=== PATIENT | male | born 1985 | race Caucasian/White ===

== ENCOUNTER 2024-05-18 02:41 | Inpatient (IN) | payer OTHER ==
[~2024-05-18] VITALS: Ht 177.8 cm; Wt 84.0 kg
[2024-05-18] MEDS: HALOPERIDOL LACTATE 5 MG/ML VIAL IM ONE (03:11)
[2024-05-18] MEDS: LORazepam 2 MG/ML VIAL IM ONE (03:11)
[2024-05-18] MEDS: DiphenhydrAMINE HCL 50 MG/ML VIAL IM ONE (03:11)
[2024-05-18] MEDS ORDERED: BUSP15 PO (03:17)
[2024-05-18] MEDS ORDERED: ESCI20TA37 PO (03:17)
[2024-05-18] MEDS ORDERED: EMTR1TAB23 PO (03:17)
[2024-05-18] MEDS ORDERED: PRAZ1 PO (03:17)
[2024-05-18] MEDS ORDERED: LACT10SO9 PO (03:17)
[2024-05-18] MEDS ORDERED: HALOPERIDOL 5 MG TABLET PO PRN (03:30)
[2024-05-18 04:24] LABS: COVID AG,FIA SOURCE NASAL SWAB
[2024-05-18 04:25] LABS: BASOPHILS % (AUTO) 0.6 % (0.0-2.0); EOSINOPHILS % (AUTO) 0.9 % (1.0-6.0); HEMATOCRIT 46.3 % (41-53); HEMOGLOBIN 15.5 g/dL (13.5-17.5); LYMPHOCYTES # (AUTO) 1.7 K/uL (1.0-4.8); LYMPHOCYTES % (AUTO) 27.1 % (22.0-44.0); MEAN CORPUSCULAR HEMOGLOBIN 31.9 pg (26.0-34.0); MEAN CORPUSCULAR HGB CONC 33.5 G/dL (31.0-37.0); MEAN CORPUSCULAR VOLUME 95 fL (80-100); MONOCYTES # (AUTO) 0.4 K/uL (0.1-1.0); MONOCYTES % (AUTO) 6.3 % (2.0-9.0); NEUTROPHILS # (AUTO) 4.1 K/uL (1.8-7.7); NEUTROPHILS % (AUTO) 65.1 % (40.0-70.0); PLATELET COUNT (AUTO) 227 K/uL (150-450); RED BLOOD CELL COUNT(AUTO) 4.85 MIL/uL (4.50-5.90); RED CELL DISTRIBUTION WIDTH 13.5 % (11.5-14.5); WHITE BLOOD COUNT (AUTO) 6.2 K/uL (4.5-11.0)
[2024-05-18 04:39] LABS: ANION GAP 13 mmol/L (8-16); CALCIUM, TOTAL 7.6 mg/dL (8.8-10.5); CARBON DIOXIDE 24 mmol/L (22-29); CHLORIDE 107 mmol/L (98-107); CREATININE 0.73 mg/dL (0.60-1.30); GLOMERULAR FILTR. RATE CALC > 60 mL/min (>60); GLUCOSE,RANDOM 90 mg/dL (70-110); POTASSIUM 3.7 mmol/L (3.5-5.1); SODIUM SERUM 144 mmol/L (136-145); UREA NITROGEN, BLOOD 5 mg/dL (7-18)
[2024-05-18 04:50] LABS: ALCOHOL, BLOOD (SERUM) 250 mg/dL (0-10)
[2024-05-18 04:54] LABS: SARS-COV2 (COVID) ANTIGEN,FIA Negative (Negative)
[2024-05-18 06:38] VITALS: O2SAT 97
[2024-05-18 10:05] VITALS: BP 109/84; PULSE 100; RESP 18; TEMP 97.4; O2SAT 97
[2024-05-18] MEDS: LORazepam 2 MG TABLET PO PRN (10:29)
[2024-05-18] MEDS ORDERED: MAG HYDROX/ALUMINUM HYD/SIMETH ES 30 ML SUSPENSION UDCUP PO PRN (10:30)
[2024-05-18] MEDS ORDERED: OMEPRAZOLE 20 MG CAPSULE PO PRN (10:30)
[2024-05-18] MEDS ORDERED: MAGNESIUM HYDROXIDE SUSPENSION 30 ML UDCUP PO PRN (10:30)
[2024-05-18] MEDS ORDERED: BENZOCAINE/MENTHOL [CEPACOL] LOZENGE PO PRN (10:30)
[2024-05-18] MEDS ORDERED: IBUPROFEN 600 MG TABLET PO PRN (10:30)
[2024-05-18] MEDS ORDERED: BACITRACIN 28 GM OINTMENT TP PRN (10:30)
[2024-05-18] MEDS ORDERED: ALBUTEROL SULFATE HFA 90 MCG/PUFF 8 GM INHALER IH PRN (10:30)
[2024-05-18] MEDS ORDERED: ACETAMINOPHEN 325 MG TABLET PO PRN (10:30)
[2024-05-18] MEDS ORDERED: LOPERAMIDE HCL 2 MG CAPSULE PO PRN (10:30)
[2024-05-18] MEDS ORDERED: ONDANSETRON 4 MG TABLET PO PRN (10:30)
[2024-05-18] MEDS: EMTRICITABINE/TENOFOVIR 200-300 MG TABLET PO SCH (10:30)
[2024-05-18] MEDS ORDERED: PETROLATUM,WHITE 28 GM JELLY TP PRN (10:30)
[2024-05-18] MEDS ORDERED: DOCUSATE SODIUM 100 MG CAPSULE PO PRN (10:30)
[2024-05-18] MEDS ORDERED: CloNIDine HCL 0.1 MG TABLET PO PRN (10:30)
[2024-05-18] MEDS: INFLUENZA VIRUS VACCINE TVS (6MO+) 2024-25/PF 45 MCG/0.5 ML SYRINGE IM. ONE (11:45)
[2024-05-18] MEDS: ESCITALOPRAM OXALATE 20 MG TABLET PO SCH (15:08)
[2024-05-18] MEDS: BusPIRone HCL 15 MG TABLET PO SCH (16:35)
[2024-05-18 21:28] VITALS: BP 130/71; PULSE 73; RESP 18; TEMP 97.5
[2024-05-18] MEDS: PRAZOSIN HCL 1 MG CAPSULE PO SCH (21:34)
[2024-05-18] MEDS: ZOLPIDEM TARTRATE 10 MG TABLET PO PRN (21:34)
[2024-05-19 08:10] VITALS: BP 130/92; RESP 17; TEMP 98; O2SAT 99
[2024-05-19] MEDS ORDERED: EMTR1TAB53 PO (16:51)
[2024-05-19] MEDS ORDERED: ESCI20TA87 PO (16:54)
[2024-05-20 03:07] LABS: HEPATITIS C AB (EIA) Non Reactive (Non Reactive)
== END 2024-05-19 17:50 | disposition home or self-care (01) | DRG 885 ==
LOC: EMS 02:41 → B3A 09:02
PROVIDERS: ADMIT Psychiatry & Neurology Child & Adolescent Psychiatry; ATTEND Psychiatry & Neurology Child & Adolescent Psychiatry
PROC: GZ56ZZZ Individual Psychotherapy, Supportive (ICD-10-PCS; principal; 2024-05-18)
DX: F33.2 Major depressive disorder, recurrent severe without psychotic features (principal); R45.851 Suicidal ideations; F41.9 Anxiety disorder, unspecified; Z20.822 Contact with and (suspected) exposure to COVID-19; K59.00 Constipation, unspecified; G47.00 Insomnia, unspecified; F10.90 Alcohol use, unspecified, uncomplicated; Z91.148 Patient's other noncompliance with medication regimen for other reason
CPT/HCPCS: 80048; 85025; 86803; 87340; 96372; 99285; G0480; J1200; J1630; J2060